=== PATIENT | male | born 1995 | race Two or more races ===

== ENCOUNTER 2023-02-02 11:17 | Emergency (ER) | payer MEDICAID, SELFPAY ==
--- NOTE | ~2023-02-02 | XR_ITS ---
EXAMINATION: XR LUMBOSACRAL SPINE CLINICAL INFORMATION: 27-year-old male with pain following lifting COMPARISON: None available. TECHNIQUE: Three views of the lumbosacral spine. FINDINGS: There are 5 not ribs bearing vertebral bodies and lumbar spine. Vertebral bodies are well aligned and intervertebral discs are preserved. Pedicles are intact. There is mild straightening of lumbar lordosis secondary to muscle spasm. Soft tissues unremarkable. XR/XR lumbar spine 2-3V IMPRESSION: Muscle spasm
--- NOTE | 2023-02-02 11:29 | ED_ITS ---
HPI - Back Pain/Injury General Chief Complaint: Back Pain/Injury Stated Complaint: back pain Time Seen by Provider: 02/02/23 11:43 Source: patient Mode of arrival: ambulatory Limitations: no limitations History of Present Illness HPI Narrative: Patient is a 27 year old assigned male at with no reported medical history presenting to the emergency department today with low back pain. Patient states that he was at work, lifted some heavy tires, and now has low back pain. Patient denies any dizziness, lightheadedness, abdominal pain, nausea, vomiting, fever, chills, blurry vision, double vision, loss of vision, chest pain, difficulty breathing, shortness of breath, night sweats, pain with urination, increased urinary frequency, increased urinary urgency, blood in his urine or stool, syncope or a near syncopal episode, bowel incontinence, bladder incontinence, bowel retention, bladder retention, or any other complaints at this time. MD elicited complaint: back pain Onset (ago): hour(s) Timing: constant Severity: mild Exacerbating factors: movement Relieving factors: none Context: while lifting Associated symptoms: denies other symptoms Related Data Previous Rx's Medication Instructions Recorded cyclobenzaprine 5 mg tablet 5 mg PO TID PRN muscle spasm 7 02/02/23 days #21 tabs Allergies Allergy/AdvReac Type Severity Reaction Status Date / Time No Known Allergies Allergy Verified 02/02/23 11:29 Review of Systems Constitutional: Constitutional: Reports no additional constitutional complaints, Denies chills, Denies fever(s) and Denies night sweats Eyes: Eyes: Reports no additional eye complaints, Denies blurry vision, Denies change in vision, Denies diplopia, Denies eye discharge, Denies loss of vision and Denies eye pain ENT: Denies dizziness Cardiovascular: Cardiovascular: Reports no additional cardiovascular complaints, Denies chest pain, Denies lightheadedness, Denies Loss of Consciousness and Denies dyspnea Respiratory: Respiratory: Reports no additional respiratory complaints and Denies dyspnea Gastrointestinal: Gastrointestinal: Reports no additional gastrointestinal complaints, Denies abdominal pain, Denies melena, Denies hematochezia, Denies change in bowel habits and Denies change in stool character Genitourinary: Genitourinary: Reports no additional male genitourinary compl aints, Denies hematuria, Denies oliguria, Denies difficulty urinating, Denies dysuria, Denies urinary frequency, Denies urinary hesitancy, Denies urinary incontinence and Denies urinary urgency Musculoskeletal: Musculoskeletal: Reports no additional musculoskeletal complaints, Reports back pain, Denies numbness and Denies tingling Neurologic: Denies dizziness, Denies loss of vision, Denies numbness and Denies tingling Psychiatric: Psychiatric: Reports no additional psychiatric complaints Endocrine: Endocrine: Reports no additional endocrine complaints Hematologic/Lymphatic: Hematologic/Lymphatic: Reports no additional hematologic/lymphatic complaints Allergic/Immunologic: Allergic/Immunologic: Reports no additional allergic/immunologic complaints PMFSH Past Medical History Attestation statement: The following information was validated with the patient. Source: old records reviewed and nursing notes reviewed Social History Social History Advance Directives: No Physical Exam Vital Signs: Vital Signs: Last Vital Signs Temp 98.2 F 02/02/23 11:31 Pulse 60 02/02/23 11:31 Resp 18 02/02/23 11:31 BP 143/80 H 02/02/23 11:31 Pulse Ox 97 02/02/23 11:31 O2 Del Method Room Air 02/02/23 11:31 BMI result Body Mass Index 31.6 Const: General: cooperative, no acute distress, alert and awake Nutritional Appearance: well nourished Orientation/consciousness: patient oriented x3 Limitations: no limitations HEENT: Head: Yes normal to inspection and Yes atraumatic Ears: hearing grossly normal bilaterally and external ears normal General nose exam: Normal external nose present, no nasal discharge noted and no epistaxis Face and sinus: Yes normal facial exam, No abrasion and No laceration Mouth: Normal oral and palatal mucosa present, no drooling and no muffled voice Eyes: General: appearance normal, both eyes and all related structures Periorbital: periorbital findings normal Eyelids: Yes eyelids normal Conjunctivae: conjunctivae normal Pupils: Equal, round and reactive pupils present EOM: EOMs intact bilaterally Neck: Neck: Yes normal visual inspection, Yes full ROM and Yes no lymphadenopathy Chest: Chest palpation & inspection: normal inspection of the chest Resp: Effort & Inspection: normal respiratory effort and able to speak in complete sentences GI: Inspection: Yes normal to inspection : General: Yes no CVA tenderness Back/Spine/Pelvis: Back: no CVA tenderness Cervical Spine: normal cervical lordosis and cervical ROM normal Thoracic/Lumbar Spine: thoracic and lumbar spine normal to inspection and thoraco-lumbar ROM normal Neuro: General: patient oriented x3 and moves all extremities Cranial nerv es: Yes Equal, round and reactive pupils present Cognition (Neuro): normal cognition Motor exam (neuro): 5/5 motor strength present throughout Sensory Exam: Normal double simultaneous stimulation for sensation Coordination: [id number] test normal Extrem: General: Yes normal to inspection, Yes full ROM and Yes capillary refill normal Psych: Appearance: grossly normal Mental Status: mental status grossly normal Affect: normal affect Attitude: cooperative Thought process: Normal thought process present Thought content: Normal thought content present Insight: Good insight present (Psych) Course Course Course Narrative: This is an RME: Additional HPI, ROS, PE not included below will be deferred to primary provider. Patient is a 27-year-old male who presents emergency department for evaluation of diffuse lower back pain since yesterday while at work. 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 Pain radiates to left leg to mid thigh. Denies numbness, or tingling, bladder or bowel incontinence. Took Tramadol from a friend without improvement. History of similar pain in the past, but not this severe. Plan: XR, placed in WR pending bed availability for pain management Medications Administered Discontinued Medications Generic Name Dose Route Start Last Admin Trade Name Januszq PRN Reason Stop Dose Admin Cyclobenzaprine HCl 5 mg 02/02/23 12:14 02/02/23 12:18 Cyclobenzaprine Hcl 5 Mg Tablet PO 02/02/23 12:15 5 mg ONCE ONE Administration Ketorolac Tromethamine 15 mg 02/02/23 12:14 02/02/23 12:18 Ketorolac Tromethamine 15 Mg/Ml Vial IM 02/02/23 12:15 15 mg ONCE ONE Administration Medical Decision Making Medical Decision Making MDM Narrative: Patient is a 27 year old assigned male at with no reported medical history presenting to the emergency department today with low back pain. Patient's physical exam was unremarkable.Patient's lumbar spine x-ray showed a muscle spasm. I explained my physical exam findings as well as all test results to the patient. I answered all questions asked by the patient. Patient received IM Toradol and PO Flexeril which he stated helped his symptoms significantly. I stressed the importance of the patient taking his medication as prescribed. I stressed the importance of the patient following up with his primary care provider. I stressed the importance of the patient returning to the emergency department immediately if his symptoms were to worsen or if he were to develop any dizziness, shortness of breath, difficulty breathing, chest pain, blurry vision, loss of vision, nausea, vomiting, abdominal pain, fever, chills, back pain, or any other complaints. Patient verbalized agreement and understanding with this treatment plan and discharge. Differential Diagnosis Differential Diagnoses: The differential diagnosis associated with the presentation includes Low back pain Muscle spasm Muscle strain Muscle sprain Independent Interpretation I performed an independent interpretation of an: Plain X-Ray Interpretation: My interpretation is in agreement with the radiologist's impression of this imaging study. --- EXAMINATION: XR LUMBOSACRAL SPINE CLINICAL INFORMATION: 27-year-old male with pain following lifting COMPARISON: None available. TECHNIQUE: Three views of the lumbosacral spine. FINDINGS: There are 5 not ribs bearing vertebral bodies and lumbar spine. Vertebral bodies are well aligned and intervertebral discs are preserved. Pedicles are intact. There is mild straightening of lumbar lordosis secondary to muscle spasm. Soft tissues unremarkable. XR/XR lumbar spine 2-3V IMPRESSION: Muscle spasm Dictated By: Ezra Hancock MD Signed By: Electronically signed by Ezra Hancock MD 02/02/23 1156 Radiology Impression Discussion of test interpretation with radiology: I have reviewed the radiologist's reading. Prescription Management I considered prescription management with: Pain Medication (patient prescribed pain medication.) Discharge Plan Discharge Clinical Impression: Muscle spasm Patient Disposition: Home, Self-Care Instructions: Muscle Spasm (ED) Additional Instructions: Follow up with your primary care provider. Return to the emergency department immediately if your symptoms worsen or if you develop any dizziness, shortness of breath, difficulty breathing, chest pain, blurry vision, loss of vision, nausea, vomiting, abdominal pain, fever, chills, back pain, or any other complaints. Queenie un seguimiento con izquierdo proveedor de atenci?n primaria. Regrese al departamento de emergencias inmediatamente si aleks s?ntomas empeoran o si presenta mareos, dificultad para respirar, dificultad para respirar, dolor en el pecho, visi?n borrosa, p?rdida de la visi?n, n?useas, v?mitos, dolor abdominal, fiebre, escalofr?os, dolor de espalda o cualquier otras quejas. Prescriptions: New cyclobenzaprine 5 mg tablet 5 mg PO TID PRN (Reason: muscle spasm) 7 Days Qty: 21 0RF Referrals: [facility] [Provider Group] (Call to establish and follow up with a primary care provider. If you already have a primary care provider, please follow up with them. Llame para establecer y realizar un seguimiento con un proveedor de atenci?n primaria. Si ya tiene un proveedor de atenci?n primaria, queenie un seguimiento con ?l.) [facility] [Provider Group] (Call to establish and follow up with a primary care provider. If you already have a primary care provider, please follow up with them. Llame para establecer y realizar un seguimiento con un proveedor de atenci?n primaria. Si ya tiene un proveedor de atenci?n primaria, queenie un seguimiento con ?l.) [facility] [Provider Group] (Call to establish and follow up with a primary care provider. If you already have a primary care provider, please follow up with them. Llame para establecer y realizar un seguimiento con un proveedor de atenci?n primaria. Si ya tiene un proveedor de atenci?n primaria, queenie un seguimiento con ?l.) Stand Alone Forms: Work/School Release Interventions: ED Discharge Assessment Last Done: 02/02/23 12:51 Discharge Date/Time: 02/02/23 12:51 Print Language: Syrian
[2023-02-02 11:31] VITALS: BP 143/80; PULSE 60; RESP 18; TEMP 36.8; O2SAT 97; BMI 31.6
[2023-02-02] MEDS: Cyclobenzaprine HCl 5 MG TABLET PO (12:18)
[2023-02-02] MEDS: Ketorolac Tromethamine 15 MG/ML VIAL IM (12:18)
== END 2023-02-02 12:51 | disposition home or self-care (01) ==
PROVIDERS: Emergency Provider Emergency Medicine
DX: M62.830 Muscle spasm of back (principal); M54.50 Low back pain, unspecified
CPT/HCPCS: 72100; 96372; 99283; 99284; J1885

== ENCOUNTER 2023-03-09 13:04 | Emergency (ER) | payer MEDICAID, SELFPAY ==
--- NOTE | ~2023-03-09 | XR_ITS ---
EXAMINATION: XR CHEST CLINICAL INFORMATION: Cough COMPARISON: None available. TECHNIQUE: 2 views of the chest were obtained. FINDINGS: Lungs are well-inflated and clear. Trachea is midline in position. No interstitial infiltrate, consolidation or mass. No pleural effusion or pneumothorax. Cardiac silhouette and pulmonary vessels are normal in size. The mediastinum and pam have normal contour. The visualized bones and upper abdomen are unremarkable. XR/XR chest 2V IMPRESSION: Normal chest. No acute cardiopulmonary abnormality.
[2023-03-09 13:13] VITALS: BP 142/89; PULSE 67; RESP 20; TEMP 36.5; O2SAT 97; BMI 30.3
--- NOTE | 2023-03-09 13:14 | ED.GENADULT ---
HPI - General Adult General Chief complaint: Upper Respiratory Symptoms Stated complaint: Sore Throat Cough Time Seen by Provider: 03/09/23 13:55 Source: patient Mode of arrival: ambulatory Limitations: no limitations History of Present Illness HPI narrative: 27 year old male with no significant pmhx presents to the ED today with complaint of dry cough and sore throat x 1 week. Cough is nonproductive of sputum. Denies decreased p.o. intake. No difficulty swallowing. Drooling secretions. No known sick contacts. States that he works in a [employer] outside in the cold. Denies rashes, fever, chills, ear pain, wheezing, chest pain, shortness of breath, abdominal pain, nausea/vomiting Related Data Previous Rx's Medication Instructions Recorded cyclobenzaprine 5 mg tablet 5 mg PO TID PRN muscle spasm 7 02/02/23 days #21 tabs benzonatate 100 mg capsule 100 mg PO BID PRN cough #14 caps 03/09/23 Allergies Allergy/AdvReac Type Severity Reaction Status Date / Time No Known Allergies Allergy Verified 02/02/23 11:29 Review of Systems Review of Systems: Constitutional: No fever, chills, fatigue, night sweats, weight changes ENT/Mouth: No ear pain, hearing loss, nasal congestion, sinus pain, rhinorrhea, +sore throat Eyes: No eye pain, swelling, redness, vision changes, discharge Cardio: No chest pain, palpitations, CABRALES, orthopnea, peripheral edema Pulm: No SOB, +cough, No sputum, wheezing, dyspnea, hemoptysis GI: No nausea, vomiting, hematemesis, abdominal pain, diarrhea, constipation, hematochezia, melena : No irregular bleeding, dysuria, frequency, urgency, hesitancy, hematuria, flank pain, urinary flow changes, urinary incontinence or retention MSK: No back pain, neck pain, joint pain, myalgias Skin: No lesions, rashes Neuro: No weakness, numbness, paresthesias, LOC, dizziness, headache All other systems reviewed and are negative. [facility] Past Medical History Attestation statement: The following information was validated with the patient. Source: old records reviewed and nursing notes reviewed Social History Social History Advance Directives: No Advance Directives Information Provided: No Physical Exam ED Vital Signs: Vital Signs - 24 hr 03/09/ 13:13 Temperature 97.7 F Pulse Rate 67 Respiratory Rate 20 Blood Pressure 142/89 H Pulse Oximetry 97 Oxygen Delivery Method Room Air BMI result Body Mass Index 30.3 Vital signs stable, afebrile Const Other: + actively coughing otherwise looks well General: cooperative, healthy appearing, comfortable, no acute distress, alert and awake Orientation/consciousness: patient oriented x3 Limitations: no limitations HENMT Other: + posterior oropharynx erythematous. No edema. No tonsillar exudates. No peritonsillar masses. Uvula midline. Controlling secretions and speaking complete sentences. Head: Yes normal to inspection Ears: hearing grossly normal bilaterally, external ears normal, TM's normal bilaterally, EAC's normal, mastoids normal and no periauricular adenopathy General nose exam: Normal external nose present, Normal nares present and No nasal discharge present Face and sinus: Yes normal facial exam and Yes sinuses nontender Mouth: Normal oral and palatal mucosa present, lip normal and tongue normal Eyes General: appearance normal, both eyes and all related structures Periorbital: periorbital findings normal Eyelids: Yes eyelids normal Conjunctivae: conjunctivae normal Sclerae: sclerae normal Pupils: Equal, round and reactive pupils present EOM: EOMs intact bilaterally Neck Neck: Yes normal visual inspection, Yes full ROM, Yes no lymphadenopathy and Yes no meningeal signs Resp Effort & Inspection: normal respiratory effort Auscultation: clear to auscultation bilaterally Cardio Rate: regular rate Rhythm: regular rhythm Peripheral pulses: radial pulses present GI Inspection: Yes normal to inspection Palpation (GI): Soft to palpation, nontender and no hepatosplenomegaly Auscultation: normal bowel sounds Skin General skin exam: no rashes or lesions noted Neuro General: patient oriented x3, gait normal, moves all extremities and no meningeal signs Cranial nerves: Yes Equal, round and reactive pupils present Extrem General: Yes normal to inspection and Yes full ROM Course Course Course Narrative: RME performed by Alicja Logan PA-C. Patient is a 27 year old assigned male at presenting to the emergency department with 1 week of sore throat and cough. Imaging and swabs ordered. Patient placed back in the waiting room pending room availability and results. Reevaluation(s) Reevaluation #1: 1415-- patient tested negative for COVID, flu, RSV, strep throat. Chest x-ray normal. Unlikely pneumonia. Patient likely has a viral syndrome. Informed patient of results. Will send Ho Oshea to pharmacy for cough. Patient has remained stable throughout ED visit today. Discussed strict return precautions. All questions answered at this time. Patient is agreeable with disposition and stable for discharge. Medical Decision Making Medical Decision Making [facility] Narrative: 27 year old male with no significant pmhx presents to the ED today with complaint of dry cough and sore throat x 1 week. Vital signs stable, afebrile, not hypoxic. Patient is nontoxic appearing and in no acute distress. Actively coughing on examination otherwise looks well. Bilateral EACs and TMs within normal limits. Posterior oropharynx erythematous, no edema, no peritonsillar masses, no tonsillar exudates, no mucosal lesions, uvula midline, controlling secretions and speaking complete sentences. RRR. Lungs CTA bilaterally, no wheezes. Clinical concern for viral syndrome, strep throat, upper respiratory infection, bronchitis, pneumonia. Unlikely pneumothorax, PE, [employer], retropharyngeal abscess, epiglottitis, respiratory distress, otitis media or externa, mastoiditis, malignant otitis media. Plan for serology and chest x-ray. Differential Diagnosis Differential Diagnoses: The differential diagnosis associated with the presentation includes as above Admission/Observation not indicated Lab Data [facility] Lab Attestation statement: I reviewed the patient's lab results. as above. Independent Interpretation I performed an independent interpretation of an: Plain X-Ray Interpretation: Chest x-ray without infiltrates or consolidation, agree with radiologist's interpretation. Radiology Impression Discussion of test interpretation with radiology: I have reviewed the radiologist's reading. Radiologist Impression: XR chest 2V IMPRESSION: Normal chest. No acute cardiopulmonary abnormality. External Record Review External record reviewed: Inpatient record Prescription Management I considered prescription management with: Other (Antitussive) Critical Care Time Critical Care Time Critical Care Time: No Discharge Plan Discharge Clinical Impression: Upper respiratory infection Patient Disposition: Home, Self-Care Instructions: Viral Syndrome (ED) Additional Instructions: You tested negative for flu, RSV, COVID, strep throat today. Your chest x-ray was normal. The likely of a viral infection. The treatment for this is symptomatic. You may take Tylenol and ibuprofen as needed for fevers or body aches. Tessalon Dayo have been sent to your pharmacy. You may take these as needed for cough. Please follow-up with your primary care provider. If symptoms persist or worsen please return to the emergency department. The case of an emergency call 911. Prescriptions: New benzonatate 100 mg capsule 100 mg PO BID PRN (Reason: cough) Qty: 14 0RF No Action cyclobenzaprine 5 mg tablet 5 mg PO TID PRN (Reason: muscle spasm) 7 Days Qty: 21 0RF Referrals: Physician,Unknown J [Primary Care Provider] - Stand Alone Forms: Work/School Release
[2023-03-09 13:57] LABS: IDNOW Serial# 08D9AD1C; Strep A Nucleic Acid Negative (Negative)
[2023-03-09 14:11] LABS: Influenza A PCR NEGATIVE (Negative); Influenza B PCR NEGATIVE (Negative); Resp Syncy Virus RNA Qual PCR NEGATIVE (Negative); SARS COV2 PCR INHOUSE NEGATIVE (Negative)
== END 2023-03-09 14:26 | disposition home or self-care (01) ==
PROVIDERS: Physician Assistant Medical; Emergency Provider Emergency Medicine Emergency Medical Services
DX: J06.9 Acute upper respiratory infection, unspecified (principal); J02.9 Acute pharyngitis, unspecified; R05.9 Cough, unspecified; Z20.822 Contact with and (suspected) exposure to COVID-19; Z20.828 Contact with and (suspected) exposure to other viral communicable diseases
CPT/HCPCS: 0241U; 71046; 87651; 99282; 99283

== ENCOUNTER 2023-07-11 18:28 | Emergency (ER) | payer MEDICAID, SELFPAY ==
--- NOTE | ~2023-07-11 | XR_ITS ---
EXAMINATION: XR LUMBOSACRAL SPINE CLINICAL INFORMATION: Atraumatic low back pain. COMPARISON: Radiograph lumbar spine 02/02/2023. TECHNIQUE: Three views of the lumbosacral spine. FINDINGS: Trace retrolisthesis at L5-S1 is unchanged. No evidence of acute compression deformity or traumatic subluxation. Query L5 pars defect. Mild intervertebral disc height loss and facet arthropathy at L5-S1. Symmetric SI joints. No significant paraspinal soft tissue abnormality. XR/XR lumbar spine 2-3V IMPRESSION: 1. Query L5 pars defects, unchanged compared to 02/02/2023. 2. Mildly increased intervertebral disc height loss and trace facet arthropathy at L5-S1.
[2023-07-11 18:55] VITALS: BP 125/62; PULSE 53; RESP 16; TEMP 36.6; O2SAT 98; BMI 43.5
--- NOTE | 2023-07-11 18:55 | ED.BACK ---
HPI - Back Pain/Injury General Chief Complaint: Back Pain/Injury Stated Complaint: low back pain Time Seen by Provider: 07/11/23 23:05 Related Data Previous Rx's ?Medication ?Instructions ?Recorded cyclobenzaprine 5 mg tablet 5 mg PO TID PRN muscle spasm 7 02/02/23 days #21 tabs benzonatate 100 mg capsule 100 mg PO BID PRN cough #14 caps 03/09/23 cyclobenzaprine 10 mg tablet 10 mg PO TID PRN muscle spasm #15 07/11/23 tabs dexamethasone 4 mg tablet 4 mg PO BID #6 tabs 07/11/23 ibuprofen 600 mg tablet 600 mg PO TID PRN pain #20 tabs 07/11/23 Allergies Allergy/AdvReac Type Severity Reaction Status Date / Time No Known Allergies Allergy Verified 07/11/23 19:03 Review of Systems Constitutional: Constitutional: Denies body ache(s), Denies chills, Denies fever(s), Denies headache(s) and Denies weakness ENT: Denies headache(s) and Denies sore throat Cardiovascular: Cardiovascular: Denies chest pain and Denies dyspnea Respiratory: Respiratory: Denies cough and Denies dyspnea Gastrointestinal: Gastrointestinal: Denies abdominal pain, Denies nausea and Denies vomiting Genitourinary: Genitourinary: Denies difficulty urinating Musculoskeletal: Musculoskeletal: Reports back pain and Denies tingling Neurologic: Denies headache(s), Denies focal weakness, Reports radicular pain, Denies tingling, Denies paresthesias and Denies weakness PMFSH Social History Social History Advance Directives: No Advance Directives Information Provided: No Physical Exam Vital Signs: Vital Signs: Last Vital Signs Temp 97.9 F 07/11/23 18:55 Pulse 53 07/11/23 18:55 Resp 16 07/11/23 18:55 BP 125/62 07/11/23 18:55 Pulse Ox 98 07/11/23 18:55 O2 Del Method Room Air 07/11/23 18:55 BMI result Body Mass Index 43.5 Const: General: healthy appearing, comfortable, no acute distress, alert and awake Nutritional Appearance: well nourished Orientation/consciousness: patient oriented x3 HEENT: Head: Yes normocephalic and Yes atraumatic Eyes: Eyelids: Yes eyelids normal Conjunctivae: conjunctivae normal Sclerae: sclerae normal Corneas: corneas normal Pupils: Equal, round and reactive pupils present EOM: EOMs intact bilaterally Neck: Neck: Yes full ROM Resp: Effort & Inspection: normal respiratory effort, able to speak in complete sentences and not labored Back/Spine/Pelvis: Other: Tenderness in the left lumbar paraspinous region. No vertebral tenderness. Straight leg raise positive on left Skin: General skin exam: elasticity normal Neuro: General: patient oriented x3 Cranial nerves: Yes Equal, round and reactive pupils present and Yes Bilaterally intact EOM present Cognition (Neuro): normal cognition Course Course Course Narrative: RME:?27 yo male here for low back pain (R>L) with intermittent radiation into legs x3 mo. used to work in warehouse engaging in heavy lifting. no injury or trauma. taking tylenol and motrin without relief. no hx of ivdu. no saddle anesthesia, or bladder incontinence or retention/tingling/weakness of the lower extremities, dysuria, hematuria. xrs ordered Full HPI, ROS and PE to be performed by the primary ED provider. Medical Decision Making Medical Decision Making MDM Narrative: 27-year-old male presents for evaluation of lower back pain. His pain radiates to both legs, he denies any numbness, tingling bladder or bowel incontinence. His pain is present for 3 months but worse for the last 2 days. He reports occasional lifting heavy at work. Denies any trauma or injury, denies any IV drug abuse. He is afebrile. Doubt infectious cause of his pain. His symptoms are most likely related to sciatica/radiculopathy. Will treat with NSAIDs, steroids, muscle relaxers and he was referred to follow-up with his PCP Differential Diagnosis Differential Diagnoses: The differential diagnosis associated with the presentation includes Sciatica Lumbar strain Disc herniation Radiculopathy Arthritis Chronic back pain Independent Interpretation I performed an independent interpretation of an: Plain X-Ray Interpretation: Straightening of the lumbar spine consistent with muscle spasm Radiology Impression Discussion of test interpretation with radiology: I have reviewed the radiologist's reading. Radiologist Impression: IMPRESSION: 1. Query L5 pars defects, unchanged compared to 02/02/2023. 2. Mildly increased intervertebral disc height loss and trace facet arthropathy at L5-S1. Discharge Plan Discharge Clinical Impression: Lumbar radiculopathy Patient Disposition: Home, Self-Care Instructions: Acute Low Back Pain (ED) Additional Instructions: Use ibuprofen as needed for pain. Take dexamethasone twice daily for the next 3 days. Use cyclobenzaprine for muscle spasms This may make you sleepy, did not drink alcohol or drive after taking it Follow-up with a primary doctor. You may benefit from outpatient lumbar spine MRI Prescriptions: New dexamethasone 4 mg tablet 4 mg PO BID Qty: 6 0RF ibuprofen 600 mg tablet 600 mg PO TID PRN (Reason: pain) Qty: 20 0RF cyclobenzaprine 10 mg tablet 10 mg PO TID PRN (Reason: muscle spasm) Qty: 15 0RF No Action benzonatate 100 mg capsule 100 mg PO BID PRN (Reason: cough) Qty: 14 0RF cyclobenzaprine 5 mg tablet 5 mg PO TID PRN (Reason: muscle spasm) 7 Days Qty: 21 0RF Stand Alone Forms: Work/School Release Print Language: Polish
[2023-07-11 23:33] VITALS: BP 125/60; PULSE 63; RESP 16; TEMP 36.6; O2SAT 97
[2023-07-11] MEDS: Ketorolac Tromethamine 30 MG/ML VIAL IM (23:42)
[2023-07-11] MEDS: dexAMETHasone 4 MG TABLET PO (23:42)
--- NOTE | 2023-07-11 23:45 | PC.NURSE ---
This RN was not primary nurse, medication and reviewed discharge instructions with pt upon discharge. pt tolerated medicated well, reviewed discharge instructions with pt. pt verbalized understanding. no sign on distress.
[2023-07-11 23:47] VITALS: BP 125/60; PULSE 63; RESP 16; TEMP 36.6; O2SAT 97
== END 2023-07-11 23:49 | disposition home or self-care (01) ==
PROVIDERS: Emergency Provider Emergency Medicine Emergency Medical Services
DX: M54.16 Radiculopathy, lumbar region (principal); M54.50 Low back pain, unspecified; Z79.899 Other long term (current) drug therapy
CPT/HCPCS: 72100; 96372; 99284; J1885; J8540

== ENCOUNTER 2023-11-30 02:46 | Emergency (ER) | payer MEDICAID, SELFPAY ==
--- NOTE | ~2023-11-30 | XR_ITS ---
EXAMINATION: XR CHEST CLINICAL INFORMATION: Dyspnea COMPARISON: 03/09/2023 TECHNIQUE: Frontal view of the chest was obtained. FINDINGS: The lungs are clear with no focal consolidation. No evidence of pneumothorax, pulmonary edema, or pleural effusions. The cardiomediastinal silhouette is unremarkable. No acute osseous findings. XR/XR chest 1V IMPRESSION: No acute cardiopulmonary findings. Electronically signed by: Sylvester Kimball MD 11/30/2023 04:49 AM EDT
[2023-11-30 03:18] VITALS: BP 134/98; PULSE 88; RESP 20; TEMP 36.8; O2SAT 98; BMI 30.1
[2023-11-30] MEDS: Albuterol Sulfate (0.083%) 2.5 MG/3 ML VIAL.NEB INHALE (03:53)
[2023-11-30] MEDS: Albuterol/Iprat 2.5/0.5MG 3 ML AMPUL.NEB INHALE (03:53)
[2023-11-30 03:54] VITALS: PULSE 82; RESP 18; O2SAT 95
[2023-11-30 04:17] LABS: Influenza A PCR NEGATIVE (Negative); Influenza B PCR NEGATIVE (Negative); Resp Syncy Virus RNA Qual PCR NEGATIVE (Negative); SARS COV2 PCR INHOUSE POSITIVE (Negative)
[2023-11-30 06:00] VITALS: BP 146/87; PULSE 67; RESP 16; TEMP 36.9; O2SAT 97
--- NOTE | 2023-11-30 06:36 | ED.URI ---
HPI - URI/Sore Throat General Chief Complaint: Upper Respiratory Symptoms Stated Complaint: lower back pain/astma Time Seen by Provider: 11/30/23 06:32 Source: patient Mode of arrival: ambulatory Limitations: no limitations History of Present Illness ED Provider: Carmen Morrison PA-C HPI Narrative: 27 y/o male with history of asthma presents to the ER for evaluation of 1 week of dry cough and shortness of breath, worse at night. Reports pain in his right lower lung when he coughs. He has been using his albuterol inhaler with minimal relief. He denies chest pain or fevers. He states coughing is making his lower back pain worse. He has a history of chronic low back pain due to heavy lifting. He states the lower back pain is starting to travel to his left buttock. No urinary symptoms or bowel issues. He denies numbness or tingling in his leg, no weakness. MD elicited complaint: fever Pertinent past history: asthma Onset (ago): week(s) (1) Consistency: progressively worsening Severity: moderate Description of mucous: clear Able to tolerate fluids by mouth: Yes Exacerbating factors: supine positioning Relieving factors: nothing Associated symptoms: denies other symptoms Treatments prior to arrival: none Related Data Previous Rx's ?Medication ?Instructions ?Recorded cyclobenzaprine 5 mg tablet 5 mg PO TID PRN muscle spasm 7 02/02/23 days #21 tabs benzonatate 100 mg capsule 100 mg PO BID PRN cough #14 caps 03/09/23 cyclobenzaprine 10 mg tablet 10 mg PO TID PRN muscle spasm #15 07/11/23 tabs dexamethasone 4 mg tablet 4 mg PO BID #6 tabs 07/11/23 ibuprofen 600 mg tablet 600 mg PO TID PRN pain #20 tabs 07/11/23 benzonatate 100 mg capsule 100 mg PO TID PRN cough #20 caps 11/30/23 cyclobenzaprine 10 mg tablet 10 mg PO TID PRN muscle spasm #10 11/30/23 tabs lidocaine 5 % topical patch 1 patch topical DAILY #15 ea 11/30/23 prednisone 20 mg tablet 40 mg (2 x 20 mg) PO DAILY #10 tabs 11/30/23 Allergies Allergy/AdvReac Type Severity Reaction Status Date / Time No Known Allergies Allergy Verified 11/30/23 03:21 Review of Systems Review of Systems: Yes all other systems are reviewed and are negative [facility] Social History Social History Advance Directives: No Advance Directives Information Provided: No Physical Exam Vital Signs: Vital Signs: Last Vital Signs Temp 98.4 F 11/30/23 07:01 Pulse 67 11/30/23 07:01 Resp 16 11/30/23 07:01 BP 146/87 H 11/30/23 07:01 Pulse Ox 97 11/30/23 07:01 O2 Del Method Room Air 11/30/23 07:01 BMI result Body Mass Index 30.1 Appearance: Alert. Oriented X3. No acute distress. Head: normocephalic, atraumatic. Eyes: Pupils equal, round and reactive to light. ENT: Pharynx normal. No tonsillar swelling or exudate. Neck: Normal inspection. Neck supple. CVS: Normal heart rate and rhythm. Pulses normal. Respiratory: No respiratory distress. Breath sounds coarse throughout. No wheezing or rhonchi. Abdomen: Soft and nontender. +BS x4 Back: normal inspection, no midline tenderness. limited flexion due to pain. Skin: Skin warm and dry. Normal skin color. Normal skin turgor. No rashes. Extremities: No lower extremity edema. No joint swelling. Neuro/psych: Oriented X 3. No motor deficit. No sensory deficit. CN II-XII intact. Normal speech and cognition. steady gait Medications Administered Discontinued Medications Generic Name Dose Route Start Last Admin Trade Name Freq PRN Reason Stop Dose Admin Albuterol Sulfate 2.5 mg 11/30/23 03:49 11/30/23 03:53 Albuterol Sulfate (0.083%) 2.5 Mg/3 Ml Vial.Neb INHALE 11/30/23 03:50 2.5 mg ONCE ONE Administration Albuterol/Ipratropium 3 ml 11/30/23 03:49 11/30/23 03:53 Albuterol/Iprat 2.5/0.5mg 3 Ml Ampul.Neb INHALE 11/30/23 03:50 3 ml ONCE ONE Administration Medical Decision Making Medical Decision Making MDM Narrative: 27 yo male with history of asthma, and chronic low back pain presents to the ER for evaluation of worsening low back pain in the setting of worsening dry cough for the last 1 week. On arrival to the ER patient had wheezing, he was treated with albuterol treatments x2. He was never hypoxic. His lung sounds improved. He had a COVID test that was positive. His chest x-ray was done that does not show any evidence of viral or bacterial pneumonia, no effusion or other acute abnormalities. Upon re-evaluation he clinically improved, no further wheezing on examination. At this time comfortable discharge home with course of prednisone which should also help his back. Will give short course of muscle relaxers as well. No role for antibiotics. No role for paxlovid given duration of symptoms. Stable for discharge home with outpatient follow-up. Patient agrees with plan and return precautions were discussed Differential Diagnosis Differential Diagnoses: The differential diagnosis associated with the presentation includes Cough: strep, covid, flu, rsv, other viral syndrome, bronchitis, pneumonia, asthma exacerbation LBP: Inflammatory disorders, muscle strain, nerve root compression, radiculopathy, plexopathy, degenerative disc disease, disc herniation, spinal stenosis, sacroiliac joint dysfunction, facet joint injury, and less likely infection?like abscess or diskitis Admission/Observation Consideration of admission/observation: Escalation of care including admission/observation considered Required 2 breathing treatments but had improvement and was able to be discharged home safely Lab Data MDM Lab Attestation statement: I reviewed the patient's lab results. Positive COVID Labs: Lab Results 11/30/23 Range/Units 03:35 Influenza Type A (PCR) NEGATIVE (Negative) Influenza Type B (PCR) NEGATIVE (Negative) RSV RNA Qual (PCR) NEGATIVE (Negative) SARS-CoV-2 RNA (RT-PCR) POSITIVE A (Negative) Independent Interpretation I performed an independent interpretation of an: Plain X-Ray Interpretation: No focal infiltrate or pneumonia Radiology Impression Discussion of test interpretation with radiology: I have reviewed the radiologist's reading. Radiologist Impression: EXAMINATION: XR CHEST CLINICAL INFORMATION: Dyspnea COMPARISON: 03/09/2023 TECHNIQUE: Frontal view of the chest was obtained. FINDINGS: The lungs are clear with no focal consolidation. No evidence of pneumothorax, pulmonary edema, or pleural effusions. The cardiomediastinal silhouette is unremarkable. No acute osseous findings. XR/XR chest 1V IMPRESSION: No acute cardiopulmonary findings. External Record Review External record reviewed: Outpatient record and Prior outpatient labs Prescription Management I considered prescription management with: Pain Medication and Antibiotic Chronic Conditions Patient?s care impacted by: Other (asthma) Critical Care Time Critical Care Time Critical Care Time: Yes Total Critical Care Time: 31 Attestation: I have personally provided critical care time exclusive of time spent on separately billable procedures. Time includes review of lab data, radiology results, reassessment after breathing treatments, and monitoring for potential decompensation. Intervention performed as documented. Discharge Plan Discharge Clinical Impression: COVID-19 Low back pain Qualifiers: Chronicity: unspecified Back pain laterality: unspecified Sciatica presence: with sciatica Sciatica laterality: sciatica of left side Qualified Code(s): M54.42 - Lumbago with sciatica, left side Patient Disposition: Home, Self-Care Instructions: Low Back Strain (ED), Lower Back Exercises (ED), COVID-19 (Coronavirus Disease 2019) (ED) Additional Instructions: Your pain is most likely due to muscle strain and spasm. No bending, lifting or twisting. Use ice several times per day for 20 minutes at a time for the next 48 hours and then change to heat. Take medications as prescribed to help with pain and discomfort. Follow up with your Primary Care Doctor this week. If your pain worsens, if you develop new numbness, tingling, weakness, loss of function or incontinence call 911 or come back to the ER right away for evaluation. You were found to be COVID-19 POSITIVE today. Your chest x-ray and oxygen levels were normal. Rest. Drink plenty of fluids. Do not go out in public while you are not feelign well. Take over the counter cold/flu medications as needed for your symptoms. Take Tylenol and/or Motrin as needed for fevers and body aches. Follow up with your doctor this week. If you shortness of breath worsens , if you develop difficulty breathing or any other concerning symptom come back to the ER for further evaluation. Prescriptions: New cyclobenzaprine 10 mg tablet 10 mg PO TID PRN (Reason: muscle spasm) Qty: 10 0RF lidocaine 5 % adhesive patch,medicated 1 patch topical DAILY Qty: 15 0RF Rx Instructions: leave on most painful area for up to 12 hrs prednisone 20 mg tablet 40 mg PO DAILY Qty: 10 0RF benzonatate 100 mg capsule 100 mg PO TID PRN (Reason: cough) Qty: 20 0RF No Action benzonatate 100 mg capsule 100 mg PO BID PRN (Reason: cough) Qty: 14 0RF dexamethasone 4 mg tablet 4 mg PO BID Qty: 6 0RF ibuprofen 600 mg tablet 600 mg PO TID PRN (Reason: pain) Qty: 20 0RF cyclobenzaprine 10 mg tablet 10 mg PO TID PRN (Reason: muscle spasm) Qty: 15 0RF cyclobenzaprine 5 mg tablet 5 mg PO TID PRN (Reason: muscle spasm) 7 Days Qty: 21 0RF Stand Alone Forms: Work/School Release Interventions: ED Discharge Assessment Last Done: 11/30/23 07:01 Discharge Date/Time: 11/30/23 07:01 Print Language: Portuguese
[2023-11-30 07:01] VITALS: BP 146/87; PULSE 67; RESP 16; TEMP 36.9; O2SAT 97
== END 2023-11-30 07:01 | disposition home or self-care (01) ==
PROVIDERS: Emergency Provider Emergency Medicine Emergency Medical Services
DX: U07.1 COVID-19 (principal); M54.42 Lumbago with sciatica, left side; J45.909 Unspecified asthma, uncomplicated; R06.02 Shortness of breath; Z79.899 Other long term (current) drug therapy
CPT/HCPCS: 0241U; 71045; 94640; 99283; 99284

== ENCOUNTER 2024-03-26 04:31 | Emergency (ER) | payer MEDICAID, SELFPAY ==
[2024-03-26] VITALS (13 sets, daily range): BP systolic 98–143; BP diastolic 43–90; PULSE 79–110; RESP 12–22; TEMP 36.4–36.9; O2SAT 86–98; BMI 33.3
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
[2024-03-26] MEDS: Haloperidol Lactate 5 MG/ML VIAL 10 MG IM (04:50)
[2024-03-26] MEDS: LORazepam 2 MG/ML VIAL IM (04:50)
[2024-03-26] MEDS: diphenhydrAMINE HCL 50 MG/ML VIAL IM (04:50)
[2024-03-26 05:21] LABS: MANUAL DIFF FLAG NO
[2024-03-26 05:22] LABS: Basophils Percent Auto 0.4 % (0-2); Eosinophils Percent Auto 0.3 % (0-4); Hematocrit 46.1 % (42.0-52.0); Hemoglobin 16.1 g/dl (14.0-18.0); Imm Gran Abs Auto 0.04 X10*3/uL (0.00-0.03); Imm Gran Pct Auto 0.4 % (0.0-0.4); Lymphocytes Percent Auto 32.1 % (20-40); Mean Corpuscular HGB Conc 34.9 g/dl (31.0-36.0); Mean Corpuscular Hemoglobin 30.9 pg (27.0-33.0); Mean Corpuscular Volume 88.5 fL (80.0-98.0); Mean Platelet Volume 10.8 fL (9.4-12.4); Monocytes Absolute Auto 0.5 X10*3/uL (0.1-1.2); Monocytes Percent Auto 4.9 % (2-11); Neutrophils Absolute Auto 5.9 x10*3/uL (2.0-8.3); Neutrophils Percent Auto 61.9 % (45-73); Platelet Count 214 X10*3/uL (160-400); Red Blood Count 5.21 X10*6/uL (4.60-5.80); Red Cell Distribution Width 12.2 % (11.0-16.0); White Blood Count 9.5 X10*3/uL (4.8-10.8)
[2024-03-26 05:41] LABS: Albumin Level 4.7 g/dL (3.5-5.0); Alkaline Phosphatase 74 U/L (39-117); Anion Gap 18 (12-20); Aspartate Amino Transferase 57 U/L (5-37); Bilirubin Total 0.4 mg/dL (0.0-1.0); Blood Urea Nitrogen 6 mg/dL (9-16); Carbon Dioxide 19 mmol/L (22-29); Chloride 110 mmol/L (96-108); Creatinine Clr Calc Pharmacy 189.9; Estimated Glomerular Filt Rate > 60; Ethanol 201 mg/dL; Glucose Random 96 mg/dL (60-115); Potassium 3.5 mmol/L (3.3-5.1); Sodium 143 mmol/L (135-145); Total Protein 8.1 g/dL (6.5-8.0)
--- NOTE | 2024-03-26 05:52 | PC.NURSE ---
Friends (Tai & Enrique) provided their contact information to contact upon discharge or with updates. Tai & Enrique brought the patient to the ED along with EMS. Tai: Enrique:
[2024-03-26 05:59] LABS: Alanine Aminotransferase 84 U/L (0-40)
--- NOTE | 2024-03-26 12:20 | PC.NURSE ---
pt ambulating to the bathroom independently. reports Feeling like shit and that he wants to go home and sleep . pt passed PO challenge. able to tolerate saltines and kate bette. informed MD Campbell of pts status and desire to go home. call placed to pts friend, Enrique, to bring pt home
== END 2024-03-26 12:58 | disposition home or self-care (01) ==
PROVIDERS: Emergency Medicine Emergency Medical Services; Emergency Provider Emergency Medicine
DX: F10.120 Alcohol abuse with intoxication, uncomplicated (principal); Y90.7 Blood alcohol level of 200-239 mg/100 ml; F12.921 Cannabis use, unspecified with intoxication delirium; R45.1 Restlessness and agitation; J45.909 Unspecified asthma, uncomplicated; Z79.899 Other long term (current) drug therapy
CPT/HCPCS: 36415; 80053; 80307; 85025; 96372; 99284; J1200; J1630; J2060

== ENCOUNTER 2024-04-06 03:25 | Emergency (ER) | payer MEDICAID, SELFPAY ==
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
[2024-04-06 03:33] VITALS: BP 121/88; PULSE 72; RESP 16; TEMP 36.8; O2SAT 99; BMI 30.3
[2024-04-06 06:21] VITALS: BP 124/79; PULSE 73; RESP 16; TEMP 36.7; O2SAT 100
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
[2024-04-06] MEDS: Ibuprofen 600 MG TABLET PO (07:36)
[2024-04-06 07:37] VITALS: BP 124/79; PULSE 73; RESP 16; TEMP 36.7; O2SAT 100
== END 2024-04-06 08:04 | disposition home or self-care (01) ==
PROVIDERS: Emergency Provider Emergency Medicine
DX: S01.01XA Laceration without foreign body of scalp, initial encounter (principal); R51.9 Headache, unspecified; M54.2 Cervicalgia; V47.6XXA Car passenger injured in collision with fixed or stationary object in traffic accident, initial encounter; Y93.89 Activity, other specified; Y92.488 Other paved roadways as the place of occurrence of the external cause; Y99.8 Other external cause status
CPT/HCPCS: 12031; 70450; 72125; 99284

== ENCOUNTER → 2024-04-06 03:52 | Outpatient (BNV) | payer MEDICAID, SELFPAY | PROVIDERS: Visit Provider General Practice | DX: S01.01XA Laceration without foreign body of scalp, initial encounter (principal); Z04.3 Encounter for examination and observation following other accident | CPT/HCPCS: 70450; 72125 ==

== ENCOUNTER 2024-04-16 14:31 | Emergency (ER) | payer MEDICAID, SELFPAY ==
[2024-04-16 14:41] VITALS: BP 147/93; PULSE 83; RESP 16; TEMP 36.3; O2SAT 98; BMI 30.3
--- NOTE | 2024-04-16 14:42 | ED.GENADULT ---
HPI - General Adult General Chief complaint: General Medical Stated complaint: Suture Removal Time Seen by Provider: 04/16/24 14:40 Source: patient, RN notes reviewed and old records reviewed Mode of arrival: ambulatory Limitations: no limitations History of Present Illness ED Provider: Deloris BROTHERS narrative: Patient is a 28-year-old male presenting to the emergency department for removal of bill placed on 04/06/2024. He states that the wound has been healing appropriately, denies any bleeding or other drainage or discharge. Denies any other concerns. MD complaint: Staple removal Associated symptoms: denies other symptoms Treatments prior to arrival: none Related Data Previous Rx's ?Medication ?Instructions ?Recorded cyclobenzaprine 5 mg tablet 5 mg PO TID PRN muscle spasm 7 02/02/23 days #21 tabs benzonatate 100 mg capsule 100 mg PO BID PRN cough #14 caps 03/09/23 cyclobenzaprine 10 mg tablet 10 mg PO TID PRN muscle spasm #15 07/11/23 tabs dexamethasone 4 mg tablet 4 mg PO BID #6 tabs 07/11/23 ibuprofen 600 mg tablet 600 mg PO TID PRN pain #20 tabs 07/11/23 benzonatate 100 mg capsule 100 mg PO TID PRN cough #20 caps 11/30/23 cyclobenzaprine 10 mg tablet 10 mg PO TID PRN muscle spasm #10 11/30/23 tabs lidocaine 5 % topical patch 1 patch topical DAILY #15 ea 11/30/23 prednisone 20 mg tablet 40 mg (2 x 20 mg) PO DAILY #10 tabs 11/30/23 ibuprofen 600 mg tablet 600 mg PO Q8H PRN fever or pain 04/06/24 #20 tabs Allergies Allergy/AdvReac Type Severity Reaction Status Date / Time No Known Allergies Allergy Verified 04/16/24 14:41 Review of Systems Review of Systems: As per HPI. Yes all other systems are reviewed and are negative Constitutional: Constitutional: Reports as per HPI [facility] Social History Social History Alcohol intake: current Alcohol intake frequency: holidays/special occasions only Substance Use Type: Marijuana Physical Exam ED Vital Signs: Vital Signs - 24 hr 04/16/24 14:41 Temperature 97.3 F Pulse Rate 83 Respiratory Rate 16 Blood Pressure 147/93 H Pulse Oximetry 98 Oxygen Delivery Method Room Air BMI result Body Mass Index 30.3 Vital signs have been reviewed and appear to be correct. Blood pressure normal. Heart rate normal. Respiratory rate normal. Temperature normal. Oxygen saturation normal. Const General: cooperative, healthy appearing and no acute distress Orientation/consciousness: oriented to person, oriented to place, oriented to time and patient oriented x3 Limitations: no limitations HENMT Head: Yes normal to inspection and Yes normocephalic Head images: 1. Four bill in place, wound appears well healed Ears: external ears normal General nose exam: Normal external nose present Face and sinus: Yes face symmetric Mouth: oropharynx normal and moist mucous membranes Throat: Yes uvula midline Eyes Pupils: Equal, round and reactive pupils present Neck Neck: Yes normal visual inspection and Yes supple Resp Effort & Inspection: normal respiratory effort and able to speak in complete sentences Auscultation: clear to auscultation bilaterally Cardio Rate: regular rate Rhythm: regular rhythm Heart sounds: S1 normal heart sound present and S2 normal heart sound present GI Palpation (GI): Soft to palpation and nontender Auscultation: normoactive bowel sounds General: Yes no CVA tenderness Back/Spine/Pelvis Back: no CVA tenderness Skin General skin exam: elasticity normal and turgor normal Neuro General: oriented to person, oriented to place, oriented to time, patient oriented x3, moves all extremities, no focal motor deficits and CN's II-XI intact bilaterally Cranial nerves: Yes Equal, round and reactive pupils present Cognition (Neuro): normal cognition Extrem General: Yes full ROM, Yes no pedal edema and Yes no calf tenderness Psych Mental Status: mental status grossly normal Affect: normal affect Thought process: Normal thought process present Medical Decision Making Medical Decision Making MDM Narrative: Patient is a 28-year-old male presenting to the emergency department for removal of bill placed on 04/06/2024. On exam patient is awake, A+Ox3, VS WNL, afebrile, normal neurological exam without focal deficits, physical exam findings as above. Given reported symptoms and physical exam findings, initial differential includes but is not limited to suture removal, cellulitis, impaired wound healing. Wound appears well healed, 4 bill removed without difficulty with success. Patient tolerated well. Discussed with patient that he should use caution when washing his hair until the wound has fully healed. You should also avoid submerging his head completely under water until the wound has fully healed. Return precautions discussed. Patient verbalized understanding of and agreement with plan. Differential Diagnosis Differential Diagnoses: The differential diagnosis associated with the presentation includes As per [facility] External Record Review External record reviewed: Inpatient record, Office record and Outpatient record Discharge Plan Discharge Clinical Impression: Removal of bill Patient Disposition: Home, Self-Care Instructions: Stitches Removal (ED) Additional Instructions: You were evaluated in the emergency department today for staple removal. Your a wound appears to be healing well. Use caution when washing your hair, do not scrub aggressively. If the area does begin to bleeding, apply gentle pressure. If you have uncontrolled bleeding or any other new or concerning symptoms, return to the ED. Prescriptions: No Action benzonatate 100 mg capsule 100 mg PO BID PRN (Reason: cough) Qty: 14 0RF dexamethasone 4 mg tablet 4 mg PO BID Qty: 6 0RF ibuprofen 600 mg tablet 600 mg PO TID PRN (Reason: pain) Qty: 20 0RF cyclobenzaprine 10 mg tablet 10 mg PO TID PRN (Reason: muscle spasm) Qty: 15 0RF ibuprofen 600 mg tablet 600 mg PO Q8H PRN (Reason: fever or pain) Qty: 20 0RF cyclobenzaprine 5 mg tablet 5 mg PO TID PRN (Reason: muscle spasm) 7 Days Qty: 21 0RF cyclobenzaprine 10 mg tablet 10 mg PO TID PRN (Reason: muscle spasm) Qty: 10 0RF lidocaine 5 % adhesive patch,medicated 1 patch topical DAILY Qty: 15 0RF Rx Instructions: leave on most painful area for up to 12 hrs prednisone 20 mg tablet 40 mg PO DAILY Qty: 10 0RF benzonatate 100 mg capsule 100 mg PO TID PRN (Reason: cough) Qty: 20 0RF Print Language: Ukrainian
[2024-04-16 14:54] VITALS: BP 147/93; PULSE 83; RESP 16; TEMP 36.3; O2SAT 98
--- OUTSIDE RECORDS SUMMARY | 2024-04-16 17:18 | XMS_ITS | Encounter Summary ---
Author Organization [employer] Address [address] [facility] 7[address] [place] [address] Care Team Providers Care Chocolate Finisher Operator Name Role Phone Unavailable Primary Care Provider Unavailabl e Reason for Visit * Reason Onset Date Comments FYI 04/04/2024 Encounter Details Date Type Department Care Team ([facility] st Contact Info) Description 04/04/2024 Telephone [facility] [address] [place] [address] Meagan Mae ANP [address] [place] [address] FY Social History Tobacco Use Types Packs/Day Years Used Date Smoking Tobacco: Never Smokeless Tobacco: Never Sex and Gender Information Value Date Recorded Sex Assigned at Male 12/18/2023 12:08 PM EDT Legal Sex Male 12:06 PM EDT Gender Identity Male 12/18/2023 12:08 PM EDT Sexual Orientation Choose not to disclose 2023 12:12 PM EDT documented as of this encounter Miscellaneous Notes * Telephone Encounter - Ame Canela RN - 04/07/2024 10:34 AM EST Call placed to [facility] at [facility] to inquire about what is needed- referral was originally ordered 12/19/23 by Meagan Mae [facility] for 20 visits for Chronic midline low back pain with left-sided sciatica. No answer, voicemail left requesting a return call. * Telephone Encounter - Alice Biggs - 04/04/2024 10:21 AM EST Tc from [facility] with [facility] stating pt is at appointment pt will be needing a new referral , freelance copywriter advised pt doesn't gets care in our facility with any of our providers. [facility] [phone] Ext [phone] documented in this encounter Plan of Treatment Upcoming Encounters Date Type Department Care Team (Late st Contact Info) Description 07/10/2024 9:15 AM EDT Office Visit [facility] [address] [place], [place] [phone] Nona Cortez MD [address] [place], [place] [phone] documented as of this encounter Visit Diagnoses Not on filedocumented in this encounter
--- OUTSIDE RECORDS SUMMARY | 2024-04-16 17:18 | XMS_ITS | Clinical Summary ---
Author Organization [facility] Address [address] [place] [address] Care Team Providers Care Tear Down Worker Name Role Phone Gisell Lindsey [facility] Primary Care Provider Source Comments PLEASE NOTE, if this patient is a minor, it may be UNLAWFUL to discuss sensitive information that is contained in these records (such as FAMILY PLANNING, MENTAL HEALTH or SUBSTANCE ABUSE) with the minor patient's parent or other person without the patient's specific authorization.[facility] Allergies No known active allergies Medications acetaminophen (TYLENOL) 500 mg tabletIndicatio ns:Chronic midline low back pain without sciatica,Chroni c pain of both knees,Chronic pain of right ankle Take 1 Tab by mouth every 6 (six) hours as needed for pain 90 Tab 2 9 Active albuterol sulfate 90 mcg/actuation inhalerIndicati ons:SOB (shortness of breath) Inhale 2 Puffs into the lungs every 4 (four) hours as needed for shortness of breath or wheezing 18 g 2 9 Active melatonin 1 mg tablet Take 1 Tab by mouth nightly at bedtime as needed for sleep 30 Tab 1 9 Active cyclobenzaprine (FLEXERIL) 5 mg tabletIndicatio ns:Chronic right-sided low back pain with right-sided sciatica Take 1 Tab by mouth 3 (three) times daily as needed for muscle spasms 20 Tab 1 0 Active ibuprofen 800 mg tabletIndicatio ns:Acute pain of left shoulder Take 1 Tab by mouth 3 (three) times daily as needed for pain 60 Tab 2 0 Active clotrimazole (LOTRIMIN) 1 % creamIndication s:Jock itch Apply topically 2 (two) times daily For groin and thigh 30 g 5 0 Active gemfibroziL (LOPID) 600 mg tabletIndicatio ns:Hypertriglyc eridemia Take 1 Tab by mouth 2 (two) times daily For cholesterol 60 Tab 2 0 Active nystatin (MYCOSTATIN) 100,000 unit/gram powderIndicatio ns:Jock itch Apply topically 4 (four) times daily 15 g 3 0 Active Active Problems Problem Noted Date Diagnosed Date Hypertriglyceridemia 10/19/2019 Jock itch 10/19/2019 Chronic midline low back pain without sciatica 0 04/08/2018 Chronic pain of both knees 04/08/2018 Chronic pain of right ankle 04/08/2018 Illiterate 02/13/2018 Heartburn Immunizations Name Administration Dates Next Due Flu, Preservative Free 04/21/2019 HPV 9 (Gardasil) 04/21/2019,04/08/2018, 8 MENINGOCOCCAL MCV4P (MENACTRA) 04/08/2018 TDAP 02/13/2018 Varicella, Live Vaccine 05/09/2018,04/08/2018 Family History Medical History Relation Name Comments No Known Problems Brother Arthritis Father Diabetes Father Hypertension Father No Known Problems Mother No Known Problems Sister Relation Name Status Comments Brother Alive Father Alive Mother Alive Sister Alive Social History Tobacco Use Types Packs/Day Years Used Date Smoking Tobacco: Former Smokeless Tobacco: Former Alcohol Use Standard Drinks/Week Comments No 0 (1 standard drink = 0.6 oz pur e alcohol) Social Connections Answer Date Recorded Connectedness 0 12/01/2023 Financial Resource Strain Answer Date R ecorded Financial Resource Strain 0 2019 Stress Answer Date Recorded Stress 0 10/14/2019 Physical Activity Answer Date Recorded Physical Activity 0 11/18/2018 Food Insecurity Answer Date Recorded Food 0 12/20/2023 Transportation Needs Answer Date Record ed Transportation 0 10/14/2019 Housing Stability Answer Date Recorded Housing 0 10/14/2019 Safety and Environment Answer Date Jose Guadalupe rded Safety 0 10/14/2019 Utilities Answer Date Recorded Utilities 0 11/18/2018 Employment Answer Date Recorded Stress 0 10/14/2019 Sex and Gender Information Value Date Recorded Sex Assigned at Male 02/13/2018 5:59 AM PST Legal Sex Male 10:40 AM PDT Gender Identity Male 02/13/2018 5:59 AM PST Sexual Orientation Straight 02/13/2018 5: 59 AM PST Occupation Industry Job Start Date Job End Date Unemployed Not on file Not on file Not on file Last Filed Vital Signs Vital Sign Reading Time Taken Comments Blood Pressure 132/90 04/21/2019 1:03 PM EST Pulse 68 04/21/2019 1:03 PM EST Temperature 36.6 ??C (97.8 ??F) 04/21/2019 1:03 PM ES T Respiratory Rate 16 04/21/2019 1:03 PM EST Oxygen Saturation - - Inhaled Oxygen Concentration - - Weight 99.4 kg (219 lb 1.6 oz) 04/21/2019 1:03 P M EST Height 183.2 cm (6' 0.13 ) 04/21/2019 1:03 PM ES T Body Mass Index 29.61 04/21/2019 1:03 PM EST Plan of Treatment Not on file Insurance [facility] Care Teams Tear Down Worker Relationship Specialty Start Date End Date Gisell Lindsey FNP [address] [place] [id number] PCP - General 10/07/18
--- OUTSIDE RECORDS SUMMARY | 2024-04-16 17:18 | XMS_ITS | Encounter Summary ---
Author Organization [employer] Address [address] [facility] 7[address] [place] [address] Care Team Providers Care Client Services Director Name Role Phone Unavailable Primary Care Provider Unavailabl e Reason for Visit * Reason Onset Date Comments New Patient Appointment Request 04/07/2024 Entered Waiting list 12/18/23 but has not been contacted Encounter Details Date Type Department Care Team ([facility] Contact Info) Description 04/07/2024 Telephone [facility] [address] [place] [address] Ame Canela RN [address] [place] [address] New Patient Appointment Request (Entered Waiting list 12/18/23 but has not been contacted) Social History Tobacco Use Types Packs/Day Years [...] encounter Miscellaneous Notes * Telephone Encounter - Dori Robbins - 04/15/2024 3:00 PM EST Outgoing call to pt to book [facility] appt. Patient booked for 07/10/[address] Cortez. No medical conditions reported. Appt reminder senr via text and mail. * Telephone Encounter - Dori Robbins - 04/07/2024 11:24 AM EST Patient is currently 148 on wait list. Patient will be contacted as soon as we are able to book pt.Thank you! * Telephone Encounter - Ame Canela RN - 04/07/2024 10:38 AM EST Patient entered [facility] Waiting list 12/18/23 but has not been contacted. Please follow up. documented in this encounter Plan of Treatment Upcoming Encounters Date Type Department Care Team (Late st Contact Info) Description 07/10/2024 9:15 AM EDT Office Visit [facility] [address] [place] [address] Nona Cortez MD [address] [place] [address] documented as of this encounter Visit Diagnoses Not on filedocumented in this encounter
--- OUTSIDE RECORDS SUMMARY | 2024-04-16 17:18 | XMS_ITS | Clinical Summary ---
Author Organization [employer] Address [address] [place] [address] [address] [place] [address] Care Team Providers Care Chief Nurse Anesthetist Name Role Phone Unavailable Primary Care Provider Unavailabl e Allergies No known active allergies Medications cyclobenzaprine (Flexeril) 10 MG tablet Take 10 mg by mouth if needed in the morning, at noon, and at bedtime for muscle spasms. 11/30/2023 Active naproxen (Naprosyn) 500 MG tabletIndicatio ns:Chronic midline low back pain with left-sided sciatica Take twice daily with food for 1 week, then as needed up to twice daily 60 tablet 12/18/2023 Active Active Problems Problem Noted Date Diagnosed Date Mild intermittent asthma without complication Anxiety 12/18/2023 Chronic midline low back pain with left-sided sc iatica 12/18/2023 Encounters Date Type Department Care Team Description 04/07/2024 Telephone [facility] [address] [place] [phone] Aem Canela RN New Patient Appointment Request (Entered Waiting list 12/18/23 but has not been contacted) 04/04/2024 Telephone [facility] [address] [place], [place] [phone] Meagan Mae ANP FYI from Last 3 Months Family History Medical History Relation Name Comments Diabetes Father Hypertension Father hypoglycemia Mother Relation Name Status Comments Father Mother Social History Tobacco Use Types Packs/Day Years Used Date Smoking Tobacco: Never Smokeless Tobacco: Never Tobacco Cessation:Counseling Given: Not Answered Sex and Gender Information Value Date Recorded Sex Assigned at Male 12/18/2023 12:08 PM EDT Legal Sex Male 12:06 PM EDT Gender Identity Male 12/18/2023 12:08 PM EDT Sexual Orientation Choose not to disclose 2023 12:12 PM EDT Last Filed Vital Signs Vital Sign Reading Time Taken Comments Blood Pressure 134/80 12/18/2023 3:02 PM EDT Pulse 74 12/18/2023 3:02 PM EDT Temperature 36.3 ??C (97.4 ??F) 12/18/2023 3:02 PM ED T Respiratory Rate 17 12/18/2023 3:02 PM EDT Oxygen Saturation 97% 12/18/2023 3:02 PM EDT Inhaled Oxygen Concentration - - Weight 105 kg (231 lb 3.2 oz) 12/18/2023 3:02 PM EDT Height - - Body Mass Index - - Plan of Treatment Upcoming Encounters Date Type Department Care Team (Late st Contact Info) Description 07/10/2024 9:15 AM EDT Office Visit [facility] [address] [place] [address] Nona Cortez MD [address] [place], [place] [phone] Health Maintenance Due Date Last Done Comments Depression Screening 1996 HIV Screening 1996 SDOH Screening 1996 Pneumococcal Vaccine: Pediat rics (0 to 5 Years) and At-Risk Patients (6 to 64 Years) (1 of 2 - PCV) 2002 Alcohol/Substance Use Screening 2008 Family Planning (PISQ) 12/12/2011 Hepatitis C Screening 2014 DTaP/Tdap/Td Vaccines (1 - Tdap) 12/12/2015 Hepatitis B Vaccines (1 of 3 - 19+ 3-dose series) 12/12/2015 COVID-19 Vaccine ( - 2023-2 5 season) 2023 Influenza Vaccine (#1) 2023 Tobacco Screening 12/17/2024 12/18/2023 Zoster Vaccines (1 of 2) 2046 RSV Patients and Pa tients Aged 60 years or older (1 - 1-dose 75+ series) 12/12/2071 HIB Vaccines Aged Out No longer eligi ble based on patient's age to complete this topic HPV Vaccines Aged Out No longer eligi ble based on patient's age to complete this topic Hepatitis A Vaccines Aged Out No long er eligible based on patient's age to complete this topic IPV Vaccines Aged Out No longer eligi ble based on patient's age to complete this topic Meningococcal Vaccine Aged Out No anna brittaney eligible based on patient's age to complete this topic RSV under 20 months Aged Out No longe r eligible based on patient's age to complete this topic Rotavirus Vaccines Aged Out No longer eligible based on patient's age to complete this topic [place] [address] [place] [address] C3
== END 2024-04-16 14:54 | disposition home or self-care (01) ==
PROVIDERS: Emergency Provider Emergency Medicine
DX: Z48.02 Encounter for removal of sutures (principal)
CPT/HCPCS: 99282